=== PATIENT | female | born 1995 | race African-American/Black ===

== ENCOUNTER 2019-02-03 02:36 | Emergency (ER) | payer SELFPAY ==
--- NOTE | 2019-02-03 02:45 | ER Document Report ---
ED Seizure - General Chief Complaint: Seizure Stated Complaint: SEIZURE LIKE ACTIVITY Time Seen by Provider: 02/03/19 02:45 Mode of Arrival: Stretcher Information source: Patient, Friend, Emergency Med Personnel Notes: HISTORY OF PRESENT ILLNESS: Patient is a 23-year-old female with a past medical history of "seizures" currently being treated with "frankincense" who presents with body shaking that the patient believes is recurrent seizure activity. Of note, the patient has not been diagnosed with epilepsy and has never been evaluated by a physician as the patient does not like physicians and chooses to be treated "naturally." Report from the patient and her boyfriend is the patient had several episodes of full body shaking lasting for several minutes, patient was intermittently able to speak both during the episodes and in between them. They report patient had a small amount of alcohol intake immediately prior to symptom onset, she otherwise denies drug use other than marijuana that she uses "several times a week." Patient was given 2.5 mg of intramuscular Versed prior to arrival for anxiety and possible shaking of her arms. Onset: Prior to arrival Provocation: Unknown Quality: Full body shaking Radiation: None Severity: Mild to moderate Timing: Now resolved SI/HI: None Hallucinations: None Associated symptoms: No fevers or chills, no cough or congestion, no vision changes, no incontinence of urine or stool REVIEW OF SYSTEMS: CONSTITUTIONAL : Denies fever or chills, no sweats. Denies recent illness. EENT: Denies eye, ear, throat, or mouth pain or symptoms. Denies nasal or sinus congestion. CARDIOVASCULAR: Denies chest pain. RESPIRATORY: Denies cough, cold, or chest congestion. Denies shortness of breath, difficulty breathing, or wheezing. GASTROINTESTINAL: Denies abdominal pain. Denies nausea, vomiting, or diarrhea. Denies constipation. GENITOURINARY: Denies difficulty urinating, painful urination, burning, frequency, or blood in urine. FEMALE GENITOURINARY: Denies vaginal bleeding, abnormal or irregular periods. Last menstrual period MUSCULOSKELETAL: Denies neck or back pain or joint pain or swelling. SKIN: Denies rash or skin lesions. HEMATOLOGIC : Denies easy bruising or bleeding. LYMPHATIC: Denies swollen, enlarged glands. NEUROLOGICAL: Positive for possible seizure activity. Denies altered mental status or loss of consciousness. Denies headache. Denies weakness or paralysis or loss of use of either side. Denies problems with gait or speech. Denies sensory or motor loss. PSYCHIATRIC: Denies suicidal/homocidal thoughts. Denies anxiety or stress or depression. All other systems reviewed and negative. PHYSICAL EXAMINATION: GENERAL: Somnolent but well-appearing, well-nourished and in no acute distress. HEAD: Atraumatic, normocephalic. No scalp deformity, depression, or crepitance. EYES: Pupils are 4mm and equal/round/reactive to light, extraocular movements intact, sclera anicteric, conjunctiva are normal. ENT: No bite chapa to the tongues bilaterally. Nares patent bilaterally, oropharynx clear without exudates or palatal petechia. Moist mucous membranes. No tonsil hypertrophy. NECK: Normal range of motion, supple without lymphadenopathy. LUNGS: Breath sounds present, equal, and clear to auscultation bilaterally. No wheezes, rales, or rhonchi. HEART: Regular rate and rhythm without murmurs, rubs, or gallops. 2+ peripheral pulses. Normal capillary refill. ABDOMEN: Soft, nontender, nondistended. Normoactive bowel sounds. No guarding, no rebound. No masses appreciated. BACK: Normal contour, no midline tenderness. Rectal exam deferred. PELVC: Deferred. EXTREMITIES: Normal range of motion, no pitting or edema. No cyanosis. NEUROLOGICAL: Slight smell of alcohol, no aphasia or facial droop, no focal neurological deficits. Moves all extremities spontaneously and on command. PSYCH: Normal mood, normal affect. No suicidal thoughts/ideations. No homocidal thoughts/ideations. No hallucinations. SKIN: Warm, dry, normal turgor, no rashes or lesions noted. ASSESSMENT AND PLAN: This patient is a 23-year-old female who presents with self-reported seizure activity with a normal physical examination and no evidence of bite chapa or urinary/fecal incontinence. Question malingering versus anxiety versus primary psychiatric disorder versus less likely undiagnosed and untreated epilepsy. 1. Will obtain labs, urine, test, drug screen, and head CT. 2. Will observe the patient until she is at her baseline. Past Medical History - General Information source: Patient, Friend, Emergency Med Personnel - Social History Smoking Status: Never Smoker Chew tobacco use (# tins/day): No Frequency of alcohol use: Occasional Drug Abuse: None, Marijuana Lives with: Family Family History: Reviewed & Not Pertinent Patient has suicidal ideation: No Patient has homicidal ideation: No - Medical History Medical History: Negative - Past Medical History Cardiac Medical History: Reports: None Pulmonary Medical History: Reports: None EENT Medical History: Reports: None Neurological Medical History: Reports: None Endocrine Medical History: Reports: None Renal/ Medical History: Reports: None Malignancy Medical History: Reports: None GI Medical History: Reports: None Musculoskeletal Medical History: Reports None Skin Medical History: Reports None Psychiatric Medical History: Reports: None Traumatic Medical History: Reports: None Infectious Medical History: Reports: None Surgical Hx: Negative Past Surgical History: Reports: None - Immunizations Immunizations up to date: Yes Hx Diphtheria, Pertussis, Tetanus Vaccination: Yes History of Influenza Vaccine for 09/2017 - 01/2018 Season: Unknown Physical Exam - Vital signs Vitals: Temp Pulse Resp BP Pulse Ox 98.6 F 93 18 127/81 H 100 02/03/19 02:37 02/03/19 02:37 02/03/19 02:37 02/03/19 02:37 02/03/19 02:37 Course - Vital Signs Vital signs: Temp Pulse Resp BP Pulse Ox 98.6 F 93 18 127/81 H 100 02/03/19 02:37 02/03/19 02:37 02/03/19 02:37 02/03/19 02:37 02/03/19 02:37 - Laboratory Result Diagrams: 02/03/19 03:35 02/03/19 03:35 - EKG Interpretation by De EKG shows normal: Sinus rhythm Rate: Normal Rhythm: NSR [place]/QRS: No: Right axis deviation, Left axis deviation, RBBB, LBBB, IVCD, LA HB/LAFB, LPHB/LPFB, Bifasicular block Voltage: No: Increased voltage, Consistant with LVH, Decreased voltage, Throughout, Limb leads P Waves: No: DARION, LAE, Absent, AV Dissociation, Other Heart block present: No: 1st Degree, Mobitz 1, Mobitz 2, CHB (3rd degree block) When compared to previous EKG there are: Previous EKG unavailable - Transfer of Care Care transferred to following provider: Dr. Ortega Notes: 02/03/19 03:58 Plan is to observe the patient until she is at her baseline and follow-up on both head CT as well as lab work. Patient may be safely discharged if back to her baseline and workup is unremarkable. She will need to follow-up with neurology as an outpatient. Discharge - Discharge Clinical Impression: Episode of shaking Condition: Good Disposition: HOME, SELF-CARE Instructions: New Seizure ([facility]) Additional Instructions: You have been evaluated in the Emergency Department for shaking spells that could be a seizure. While here, you had blood work and a head CT that were all normal and it is now safe to be discharged home. Please follow-up with your primary physician as well as a neurologist as instructed in 1 week to be reassessed. Return to the Emergency Department if you experience high fevers, disorientation, confusion, or any other concerning symptoms. Referrals: FRANCES SIMPSON MD [EMERITUS] - Follow up as needed Print Language: Croatian
[2019-02-03 03:46] LABS: ABSOLUTE EOSINOPHILS # (AUTO) 0.3 10^3/uL (0.0-0.6); ABSOLUTE LYMPHOCYTES (AUTO) 2.2 10^3/uL (0.5-4.7); ABSOLUTE MONOCYTES (AUTO) 0.5 10^3/uL (0.1-1.4); ABSOLUTE NEUT (AUTO) 4.9 10^3/uL (1.7-8.2); BASOPHILS % (AUTO) 0.4 % (0-2); EOSINOPHILS % (AUTO) 3.3 % (0-6); HEMATOCRIT 40.9 % (36.0-47.0); HEMOGLOBIN 13.9 g/dL (12.0-15.5); LYMPHOCYTES % (AUTO) 27.8 % (13-45); MEAN CORPUSCULAR HEMOGLOBIN 32.2 pg (27.0-33.4); MEAN CORPUSCULAR HGB CONC 33.9 g/dL (32.0-36.0); MEAN CORPUSCULAR VOLUME 95 fl (80-97); MONOCYTES % (AUTO) 6.2 % (3-13); PLATELET COUNT 245 10^3/uL (150-450); RED BLOOD COUNT 4.32 10^6/uL (3.72-5.28); RED CELL DISTRIBUTION WIDTH 13.2 % (11.5-14.0); SEGMENTED NEUTROPHILS % (AUTO) 62.3 % (42-78); TOTAL CELLS COUNTED % (AUTO) 100 %; WHITE BLOOD COUNT 7.9 10^3/uL (4.0-10.5)
[2019-02-03 04:08] LABS: ALANINE AMINOTRANSFERASE 12 U/L (9-52); ALBUMIN 4.5 g/dL (3.5-5.0); ALCOHOL 194 mg/dL (NONE DETECTED); ALKALINE PHOSPHATASE 41 U/L (38-126); ANION GAP 13 (5-19); ASPARTATE AMINO TRANSFERASE 22 U/L (14-36); BILIRUBIN,DIRECT 0.3 mg/dL (0.0-0.4); BILIRUBIN,TOTAL 0.5 mg/dL (0.2-1.3); BLOOD UREA NITROGEN 10 mg/dL (7-20); CALCIUM 9.4 mg/dL (8.4-10.2); CARBON DIOXIDE 24 mmol/L (22-30); CHLORIDE 103 mmol/L (98-107); GLUCOSE 88 mg/dL (75-110); POTASSIUM 3.9 mmol/L (3.6-5.0); SODIUM 139.6 mmol/L (137-145); TOTAL PROTEIN 7.3 g/dL (6.3-8.2)
--- NOTE | 2019-02-03 04:09 | RADIOLOGY REPORT (SQ) ---
EXAM DESCRIPTION: CT HEAD WITHOUT IV CONTRAST COMPLETED DATE/TME: 02/03/2019 03:09 CLINICAL HISTORY: 23 years, Female, Seizure COMPARISON: None. TECHNIQUE: 200 Images stored on PACS. All CT scanners at this facility use dose modulation, iterative reconstruction, and/or weight based dosing when appropriate to reduce radiation dose to as low as reasonably achievable (ALARA). [facility]: Dose Right [facility]: CareDose [facility]: Dose Right [facility]: Teradose 4D [facility]: InfoScout LIMITATIONS: None. FINDINGS: The globes are intact. Mucosal thickening and polyps of the maxillary sinuses and ethmoid air cells. No displaced or depressed skull fracture. No intra or extra-axial hemorrhage. CT is limited for evaluation of acute infarct. No CT evidence for large or territorial acute infarct. No mass or midline shift. IMPRESSION: Negative for acute intracranial abnormality TECHNICAL DOCUMENTATION: Quality ID # [id number]: Final reports with documentation of one or more dose reduction techniques (e.g., Automated exposure control, adjustment of the mA and/or kV according to patient size, use of iterative reconstruction technique) copyright 2011 [employer]- All Rights Reserved
[2019-02-03 09:14] VITALS: BP 98/76
--- NOTE | 2019-02-03 10:25 | EKG REPORT ---
SEVERITY:- NORMAL ECG - SINUS RHYTHM ST ELEV, PROBABLE NORMAL EARLY REPOL PATTERN : Confirmed by: Daya Holman MD 03-Feb-2019 10:24:59
== END 2019-02-03 09:18 | disposition home or self-care (01) ==
LOC: ER 02:36
DX: R29.818 Other symptoms and signs involving the nervous system (principal); F41.9 Anxiety disorder, unspecified
CPT/HCPCS: 36415; 70450; 80053; 80307; 85025; 93005; 93010; 99284